=== PATIENT | female | born 1980 | race Caucasian/White ===

== ENCOUNTER 2021-12-09 14:37 | Outpatient (CLI) | payer BC, SELFPAY | END 2021-12-09 14:38 | disposition home or self-care (01) | LOC: ANHAUDIO 14:39 | PROVIDERS: PCP Family Medicine; Visit Provider Family Medicine | DX: H90.11 Conductive hearing loss, unilateral, right ear, with unrestricted hearing on the contralateral side (principal) | CPT/HCPCS: 92557; 92567 ==

== ENCOUNTER 2022-03-31 17:40 | Emergency (ER) | payer BC, SELFPAY ==
[2022-03-31 17:49] VITALS: BP 102/76; PULSE 94; RESP 16; TEMP 36.7; O2SAT 99
--- NOTE | 2022-03-31 18:06 | ED.URI ---
HPI - URI/Sore Throat General Chief Complaint: Upper Respiratory Infection Stated Complaint: ear pain/sore throat/fever Time Seen by Provider: 03/31/22 18:06 History of Present Illness HPI Narrative: 41-year-old female presented for complaint of right ear pain and sore throat for 3 days. She has been taking Aleve with minimal relief. She denies associated sinus congestion, drainage, nausea, vomiting, fevers or chills. Related Data Home Medications Medication Instructions Recorded Confirmed ergocalciferol (vitamin D2) 1,250 1 cap PO WEEKLY 03/31/22 03/31/22 mcg (50,000 unit) capsule Allergies Allergy/AdvReac Type Severity Reaction Status Date / Time No Known Allergies Allergy Verified 03/31/22 17:56 Review of Systems Review of Systems: CONSTITUTIONAL: Denies body aches, fever, chills, or sweats. EYES: Denies visual changes, redness, or discharge. ENT: Denies rhinorrhea, congestion CARDIOVASCULAR: Denies chest pain, palpitations, or edema. RESPIRATORY: Denies dyspnea. NEUROLOGIC: Denies headache Exam Narrative: GENERAL: well appearing, no acute distress. EYES: conjunctivae clear ENT: Mucous membranes moist. TMs pearly gill with normal light reflex bilaterally; no tragal tenderness. Oropharynx erythematous without lesions. No drooling, no hoarseness, no trismus, uvula midline. No tripod positioning, hot potato voice, or soft palate swelling. NECK: Supple. right anterior lymphadenopathy CHEST: Clear to auscultation, breath sounds equal. HEART: Regular rate and rhythm. No murmur heard. SKIN: Warm, dry, no rash. NEURO: Alert and oriented x3. Course Course Emergency Course: Patient is aware of diagnosis, understands and agrees to treatment plan. Anticipatory guidance given. Patient agrees to follow-up as directed and is aware of reasons to seek care at the emergency department. Portions of this record may have been created with voice recognition software Level of Care: Express Care Visit Vital Signs Vital signs: Vital Signs Temperature 98.0 F 03/31/22 17:49 Pulse Rate 94 03/31/22 17:49 Respiratory Rate 16 03/31/22 17:49 Blood Pressure 102/76 03/31/22 17:49 Pulse Oximetry 99 03/31/22 17:49 Oxygen Delivery Room Air 03/31/22 17:49 Temperature 98.0 F 03/31/22 17:49 Pulse Rate 94 03/31/22 17:49 Respiratory Rate 16 03/31/22 17:49 Blood Pressure 102/76 03/31/22 17:49 Pulse Oximetry 99 03/31/22 17:49 Oxygen Delivery Room Air 03/31/22 17:49 MDM - URI/Sore Throat MDM Narrative Medical decision making narrative: strep result reviewed with pt. Advise supportive treatments. Patient is appropriate for outpatient treatment and follow-up. Differential Diagnosis Differential diagnosis: Likely upper respiratory infection, viral infection and pharyngitis Lab Data Labs: Strep Screen Presumptive Negative *(Reference Range: Negative)* Discharge Plan Discharge Clinical Impression: Pharyngitis Qualifiers: Pharyngitis/tonsillitis etiology: unspecified etiology Qualified Code(s): J02.9 - Acute pharyngitis, unspecified Patient Disposition: Home, Self-Care Condition: Stable Instructions: Allergic Rhinitis (ED) Additional Instructions: Rapid strep swab was negative today You will be notified in a few days if the culture comes back positive for strep, and appropriate antibiotics will be called in at that time. if symptoms are due to a viral illness, it is not treated with antibiotics. Viral symptoms can be present for up to 10-14 days. Recommend Flonase spray and Zyrtec for sinus congestion Tylenol 1000mg every 8 hours as needed for pain/fever Soft foods, cool liquids, warm tea. Gargle with warm saltwater twice a day. Rest and stay hydrated. --Follow up with your PCP if symptoms are not improving, or sooner if symptoms are worsening. Go to the ER immediately if you cannot swallow yo
== END 2022-03-31 18:38 | disposition home or self-care (01) ==
PROVIDERS: Emergency Provider Nurse Practitioner Family; PCP Family Medicine
DX: J02.9 Acute pharyngitis, unspecified (principal)
CPT/HCPCS: 87081; 87880; 99213; G0463